=== PATIENT | female | born 1990 | race Caucasian/White ===

== ENCOUNTER 2017-10-26 20:13 | Emergency (ER) | payer OTHER ==
--- NOTE | 2017-10-26 22:11 | ER Document Report ---
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 No previous injury. Associated Symptoms: None Exacerbated by: Movement Relieved by: Denies Similar symptoms previously: No Recently seen / treated by doctor: No - ROS ROS below otherwise negative: Yes Systems Reviewed and Negative: Yes All other systems reviewed and negative - CONSTITUTIONAL Constitutional: DENIES: Fever, Chills - EENT EENT: DENIES: Sore Throat, Ear Pain, Eye problems - NEURO Neurology: DENIES: Headache, Weakness, Vision blurred, Dizzinesss / Vertigo - CARDIOVASCULAR Cardiovascular: DENIES: Chest pain - RESPIRATORY Respiratory: DENIES: Trouble Breathing, Coughing - GASTROINTESTINAL Gastrointestinal: DENIES: Abdominal Pain, Black / Bloody Stools - URINARY Urinary: DENIES: Dysuria, Urgency, Frequency - REPRODUCTIVE Reproductive: DENIES: : - MUSCULOSKELETAL Musculoskeletal: REPORTS: Extremity pain - R hand/ wrist Past Medical History - General Information source: Patient - Social History Smoking Status: Never Smoker Frequency of alcohol use: None Drug Abuse: None Lives with: Family Family History: CVA, Hypertension, Malignancy, Thyroid Disfunction Patient has suicidal ideation: No Patient has homicidal ideation: No Neurological Medical History: Reports: Hx Migraine Renal/ Medical History: Reports: Hx Kidney Stones. Denies: Hx Peritoneal Dialysis Past Surgical History: Reports: Hx Myringotomy, Hx Orthopedic Surgery - tumor removed for left toe - Immunizations Hx Diphtheria, Pertussis, Tetanus Vaccination: No - refused Vertical Provider Document - CONSTITUTIONAL Agree With Documented VS: Yes Exam Limitations: No Limitations General Appearance: No Apparent Distress - INFECTION CONTROL TRAVEL OUTSIDE OF THE [place] IN LAST 30 DAYS: No - HEENT HEENT: Normocephalic - NECK Neck: Supple - MUSCULOSKELETAL/EXTREMETIES Musculoskeletal/Extremeties: MAEW, FROM, Tender - dorsal and volar between radius and carpal. non tender snuffbox - NEURO Level of Consciousness: Awake, Alert Motor/Sensory: No Motor Deficit, No Sensory Deficit - DERM Integumentary: Warm, Dry Course - Re-evaluation Re-evalutation: 10/26/17 22:50 Radiologist interpreted the x-ray for lineal lucency distal radius for possible fracture. I will splint and sent to orthopedics. Scaphoid is normal. Procedures - Immobilization Right Wrist Time completed: 23:30 Pre-Proc Neuro Vasc Exam: Normal Immobilizer type: Volar splint Performed by: PCT Post-Proc Neuro Vasc Exam: Normal Alignment checked and good: Yes Discharge - Discharge Clinical Impression: linear lucency distal right radius Condition: Good Disposition: HOME, SELF-CARE Instructions: Acetaminophen, Fractured Radius ([facility]), Splint Precautions ([facility]), Temporary Splint ([facility]) Additional Instructions: splint see the orthopedic doctor for follow up to er any concerns Forms: Return to Work Referrals: ELVIN YUSUF DO [ACTIVE STAFF] - Follow up tomorrow (call for appointment )
[2017-10-26 22:35] VITALS: BP 103/69
--- NOTE | 2017-10-26 22:35 | RADIOLOGY REPORT (SQ) ---
EXAM DESCRIPTION: WRIST RIGHT 3 VIEWS COMPLETED DATE/TIME: 10/26/2017 10:20 pm REASON FOR STUDY: injury . Fall on ice Wednesday. Pain all over. COMPARISON: None. NUMBER OF VIEWS: Four views. TECHNIQUE: AP, lateral, oblique, and scaphoid radiographic images acquired of the right wrist. LIMITATIONS: None. FINDINGS: MINERALIZATION: Normal. BONES: There is a linear lucency at the distal radius extending into the radiocarpal joint, may repre sent a nondisplaced intra-articular fracture. The osseous alignment is maintained. SOFT TISSUES: There is mild soft tissue swelling at the distal forearm. No radiopaque foreign body. IMPRESSION: Linear lucency at the distal radius, may represent a nondisplaced intra-articular fractu re. Please correlate with point tenderness. Mild soft tissue swelling at the distal forearm. TECHNICAL DOCUMENTATION: JOB ID: [id number] [employer]- All Rights Reserved
== END 2017-10-26 23:48 | disposition home or self-care (01) ==
LOC: ER 20:13
PROC: 2W3CX1Z Immobilization of Right Lower Arm using Splint (ICD-10-PCS; principal; 2017-10-26)
DX: S52.591A Other fractures of lower end of right radius, initial encounter for closed fracture (principal); W18.30XA Fall on same level, unspecified, initial encounter; Y99.0 Civilian activity done for income or pay; Z87.442 Personal history of urinary calculi
CPT/HCPCS: 99283